=== PATIENT | female | born 1955 | race Two or more races ===

== ENCOUNTER 2022-08-04 00:59 | Emergency (ER) | payer MEDICAID ==
--- NOTE | 2022-08-04 01:52 | NUR ---
CALLED FOR TRIAGE, NO ANSWER
--- NOTE | 2022-08-04 02:13 | NUR ---
CALLED FOR TRIAGE, NO ANSWER
== END 2022-08-04 02:21 | disposition left against medical advice (07) ==
LOC: ER 01:02
DX: Z53.21 Procedure and treatment not carried out due to patient leaving prior to being seen by health care provider (principal)

== ENCOUNTER 2022-10-10 05:33 | Inpatient (IN) | payer MEDICAID ==
[~2022-10-10] VITALS: Ht 170.2 cm; Wt 152.9 kg
[2022-10-10] VITALS (36 sets, daily range): BP systolic 81–143; BP diastolic 51–118; TEMP 97.5–98.6
--- NOTE | 2022-10-10 05:41 | NUR ---
[id number] HOME C/O SOB X1 HR. SATTING 85% ON NRB LOCKSTITCH TOPSTITCHER. RR 35. CONNECTED PT TO POX AND MONITOR. SAFETY MEASURES IN PLACE.
[2022-10-10] MEDS ORDERED: LORAZEPAM INJ 2 MG/ML VIAL ONE (05:42)
--- NOTE | 2022-10-10 05:42 | NUR ---
20G IV STARTED ON L AC AND R AC
--- NOTE | 2022-10-10 05:43 | NUR ---
COVID ANTIGEN SWAB COLLECTED AND SENT TO LAB
--- NOTE | 2022-10-10 05:43 | NUR ---
BLOOD COLLECTED AND SENT TO LAB
--- NOTE | 2022-10-10 05:53 | NUR ---
BLOOD CULTURE SAMPLES SENT TO LAB
--- NOTE | 2022-10-10 05:55 | NUR ---
TRENCH SHOVEL OPERATOR AT PT'S BEDSIDE
[2022-10-10] MEDS ORDERED: LORAZEPAM INJ 2 MG/ML VIAL IM ONE (06:00)
[2022-10-10] MEDS ORDERED: VANCOMYCIN 1 GM in IV D5W 250 ML IV SCH (06:00)
[2022-10-10] MEDS ORDERED: ACETAMINOPHEN ES 500 MG TABLET PO ONE (06:00)
[2022-10-10] MEDS ORDERED: PIPERACILLIN /TAZOBACTAM 3.375 G in IV D5W 50 ML IV ONE (06:00)
[2022-10-10] MEDS ORDERED: LORAZEPAM INJ 2 MG/ML VIAL IV ONE (06:00)
--- NOTE | 2022-10-10 06:04 | NUR ---
16FR F/C INSERTED. URINE COLLECTED AND SENT TO LAB
[2022-10-10] MEDS ORDERED: PIPERACI/TAZO 3.375GM/D5W 50ML PB IV ONE (06:06)
[2022-10-10] MEDS ORDERED: ACETAMINOPHEN ES 500 MG TABLET ONE (06:07)
--- NOTE | 2022-10-10 06:10 | NUR ---
PT PLACED ON BIPAP SETTINGS: IPAP 15 EPAP 5 FIO2 60% RATE 16
[2022-10-10] MEDS ORDERED: VANCOMYCIN 1 GM /D5W 250 ML PB IV ONE (06:17)
[2022-10-10 06:24] LABS: BASOPHILS # (AUTO) 0.1 K/uL (0.0-0.2); BASOPHILS % (AUTO) 0.7 % (0.0-2.0); EOSINOPHILS % (AUTO) 0.2 % (0.0-6.0); HEMATOCRIT 48 % (33-45); HEMOGLOBIN 13.7 g/dL (11.5-14.8); LYMPHOCYTES # (AUTO) 1.6 K/uL (0.8-4.8); LYMPHOCYTES % (AUTO) 13.9 % (20.0-44.0); MEAN CORPUSCULAR HGB CONC 29 g/dl (31.0-36.0); MEAN CORPUSCULAR VOLUME 63 fL (82-100); MONOCYTES # (AUTO) 0.8 K/uL (0.1-1.30); MONOCYTES % (AUTO) 6.6 % (2.0-12.0); NEUTROPHILS # (AUTO) 9.1 K/uL (1.8-8.9); NEUTROPHILS % (AUTO) 78.6 % (43.0-81.0); PLATELET COUNT (AUTO) 189 K/uL (150-450); RED BLOOD CELL COUNT(AUTO) 7.61 MIL/uL (4.0-5.2); WHITE BLOOD COUNT (AUTO) 11.6 K/uL (4.3-11.0)
[2022-10-10] MEDS ORDERED: FUROSEMIDE 40 MG/4 ML VIAL IV ONE (06:30)
[2022-10-10] MEDS ORDERED: DILTIAZEM HCL IV 125 MG in IV NS 0.9% 100 ML IV PRN ×2 (06:30→14:00)
[2022-10-10] MEDS ORDERED: DILTIAZEM HCL 50 MG IV IV ONE (06:30)
[2022-10-10] MEDS ORDERED: FUROSEMIDE 40 MG/4 ML VIAL ONE (06:30)
[2022-10-10] MEDS ORDERED: DILTIAZEM HCL 50 MG IV ONE (06:32)
--- NOTE | 2022-10-10 06:47 | NUR ---
CARDIZEM DRIP STARTED 0645 @5MG/HR
[2022-10-10 06:48] LABS: CALCIUM, SERUM 9.5 mg/dL (8.5-10.1); CARBON DIOXIDE 28 mmol/L (21-32); CHLORIDE 99 mmol/L (98-107); GLUCOSE 190 mg/dL (74-106); POTASSIUM 4.2 mmol/L (3.5-5.1); SODIUM SERUM 138 mmol/L (136-145); UREA NITROGEN, BLOOD 17 mg/dL (7-18)
[2022-10-10 06:48] LABS: BILIRUBIN,URINE 1+ (NEGATIVE); COLOR,URINE DARK YELLOW (YELLOW); LEUKOCYTE ESTERASE ,URINE NEGATIVE (NEGATIVE); NITRITE, URINE NEGATIVE (NEGATIVE); PH,URINE 7.5 (5.0-8.0); PROTEIN,URINE 3+ mg/dl (NEGATIVE); UGLUCOSE TRACE mg/dL (NEGATIVE)
[2022-10-10 06:58] LABS: ALANINE AMINOTRANSFERASE 35 U/L (12-78); ALBUMIN 3.5 g/dL (3.4-5.0); ALKALINE PHOSPHATASE 113 U/L (46-116); ASPARTATE AMINOTRANSFERASE 33 U/L (15-37); BILIRUBIN,DIRECT 0.8 mg/dL (0.0-0.2); BILIRUBIN,TOTAL 3.2 mg/dL (0.2-1.0)
[2022-10-10] MEDS ORDERED: AMIODARONE 150 MG/3 ML VIAL IV ONE ×2 (06:58→07:00)
[2022-10-10 07:00] LABS: BACTERIA,URINE Rare /HPF (None Seen); RBC,URINE 0-2 /HPF (0-2); SQUAMOUS EPITHELIAL CELL,UR Few /HPF (None Seen); WBC,URINE 0-2 /HPF (0-3)
--- NOTE | 2022-10-10 07:11 | NUR ---
ICU RM: [id number]
--- NOTE | 2022-10-10 07:28 | NUR ---
PATIENT ON BIPAP WITH FIO2 60.
[2022-10-10] MEDS ORDERED: ZOLPIDEM TARTRATE 5 MG TABLET PO PRN (08:00)
[2022-10-10] MEDS ORDERED: ONDANSETRON HCL/PF 4 MG/2 ML VIAL IVP PRN (08:00)
[2022-10-10] MEDS ORDERED: ACETAMINOPHEN 325 MG TABLET PO PRN (08:00)
[2022-10-10] MEDS ORDERED: MAG HYDROX/AL HYDROX/SIMETH 30 ML UDC PO PRN (08:00)
[2022-10-10] MEDS ORDERED: Z GUARD REMEDY 4 OZ OINT TP PRN (08:00)
[2022-10-10] MEDS ORDERED: MAGNESIUM HYDROXIDE 30 ML UDC PO PRN (08:00)
--- NOTE | 2022-10-10 08:23 | NUR ---
CALLED TI ICU DEPARTMENT ,REPORT GIVEN TO ADITYA VALDIVIA At 0820AM
--- NOTE | 2022-10-10 08:54 | NUR ---
Souleymane treviño in ED - 10/10/22 at 0859 by STELLA INJ CARDIZAM INCREASED TO 10 MG /HR
--- NOTE | 2022-10-10 08:58 | NUR ---
INJ CARDIZEM INCREASED TO 15 MG /HR
--- NOTE | 2022-10-10 09:15 | NUR ---
PT TRANSPORTATED TO ICU WITH ACLS PROTOCOLS ACCOMPANIED BY RT
--- NOTE | 2022-10-10 09:30 | NUR ---
RN NOTES PT ADMITTED FROM ER FOR ACUTE RESPIRATORY FAILURE. ON BIPAP 16L WITH FIO2 OF 60%, RUNNING CARDIZEM DRIP AT MAX OF 15 MG/HR.
[2022-10-10 09:32] LABS: ABG BASE EXCESS 1.8 mmol/L; ABG OXYGEN SATURATION 96.4 % (92.0-98.5); ABG PCO2 55.7 mmHg (35.0-45.0); ABG PH 7.333 (7.350-7.450); AaDO2 187.6 mmHg; COHb 1.6 % (0.5-1.5); MetHb 0.5 % (0.0-1.5); O2Hb 94.4 % (94.0-97.0); SITE, ABG Right Radial
[2022-10-10] MEDS: PANTOPRAZOLE 40 MG VIAL IV SCH (10:01)
[2022-10-10] MEDS: ENOXAPARIN SODIUM 40 MG/0.4 ML DISP.SYRIN SQ SCH (10:02)
[2022-10-10] MEDS: FUROSEMIDE 40 MG/4 ML VIAL IV SCH ×2 (10:02→15:31)
--- NOTE | 2022-10-10 12:00 | NUR ---
RN NOTES FOR RESPIRATORY SETTING PT ON BIPAP AT 16L W/FIO2 AT 50. UNABLE TO DOCUMENT ON FLOWSHEET CORRECT FLOW SETTING.
[2022-10-10 13:02] LABS: ABG BASE EXCESS 3.3 mmol/L; ABG OXYGEN SATURATION 97.3 % (92.0-98.5); ABG PCO2 57.6 mmHg (35.0-45.0); ABG PH 7.341 (7.350-7.450); ABG PO2 99.5 mmHg (75.0-100.0); AaDO2 192.2 mmHg; COHb 1.4 % (0.5-1.5); MetHb 0.4 % (0.0-1.5); O2Hb 95.5 % (94.0-97.0); SITE, ABG Left Radial; VENT MODE, BG 25/10 rr16 50%
[2022-10-10] MEDS: ZOSYN IVPB 3.375 G in IV D5W 50ml IV SCH ×3 (13:42→23:52)
--- NOTE | 2022-10-10 15:51 | NUR ---
RN CLOSING NOTES PT IS COMFORTABLE. STILL ON BIPAP 16L AND FIO2 OF 50%. PT IS MORE ALERT THAN BEFORE. BARIATRIC BED ORDERED FOR PT; PENDING DELIVERY. PT ON CARDIZEM DRIP OF 15 MG/HR. REPORT GIVEN TO JANE VALDIVIA FOR CONTINUATION OF CARE.
--- NOTE | 2022-10-10 16:00 | NUR ---
RN NOTES PT RECEIVED FROM ADITYA VALDIVIA FOR CONTINUITY OF CARE
[2022-10-10] MEDS: VANCOMYCIN 1.25 GM in IV D5W 250 ML IV SCH (17:03)
--- NOTE | 2022-10-10 18:27 | NUR ---
RN NOTES PT REMAINS ON CARDIZEM AT 5MG/HR , HR A.FIB IN 70'S , EGAN DRAINING TO GRAVITY, PT TOLERATING BIPAP SETTING WELL, PT IS MORE AWAKE, WILL ENDORSE TO BUILDING INSPECTION ENGINEER NURSE FOR CONTINUITY OF CARE .
--- NOTE | 2022-10-10 19:20 | NUR ---
RN OPENING NOTES RECEIVED PATIENT ON BED, OPEN EYES WHEN CALLING HER NAME A/O X 1-2 WITH CONFUSION. ON BIPAP WITH SETTING 25/10, AC-16, FIO2-50% SATING AT 97%. RESPIRATORY EVEN AND UNLABORED NO SOB NOTED. AFIB ON MONITOR WITH HR- 86 BPM. AFEBRILE, NO S/S OF DISTRESS NOTED. PATIENT CURRENTLY NPO EXCEPT MEDS. WITH RODNEY PICC LINE, RIGHT AC # 20 PERIPHERAL LINE, PATENT INTACT, FLUSHED WITH NS, NO S/S OF INFILTRATION NOTED. RUNNING CARDIZEM DRIP @ 5MG/HR. ON EGAN CATHETER, PATENT, INTACT DRAINING WITH CLEAR YELLOW URINE OUTPUT. ALL SAFETY PRECAUTION PROVIDED. BED IN LOWEST POSITION LOCKED. CALL LIGHT WITH IN REACH.
[2022-10-10] MEDS: DILTIAZEM HCL IV 125 MG in IV NS 0.9% 100 ML IV PRN (20:40)
--- NOTE | 2022-10-10 22:20 | NUR ---
RN NOTES NOTIFIED DENIS ADKINS REGARDING PATIENT BP- 82/52, HR- 83 BPM, PATIENT ON CARDIZEM DRIP, STILL AFIB ON MONITOR WITH NEW ORDER BOLUS NS 250ML NOTED AND CARRIED OUT.
[2022-10-10] MEDS ORDERED: IV NS 0.9% 250 ML IV ONE (22:30)
[2022-10-11] VITALS (44 sets, daily range): BP systolic 86–156; BP diastolic 55–130; TEMP 97.9–98.9
[2022-10-11 04:54] LABS: CALCIUM, SERUM 8.7 mg/dL (8.5-10.1); CREATININE 1.1 mg/dL (0.6-1.3); MAGNESIUM 1.6 mg/dL (1.8-2.4); PHOSPHORUS 4.9 mg/dL (2.5-4.9); POTASSIUM 4.1 mmol/L (3.5-5.1)
[2022-10-11 05:02] LABS: BASOPHILS % (AUTO) 0.2 % (0.0-2.0); EOSINOPHILS % (AUTO) 0.1 % (0.0-6.0); HEMATOCRIT 39 % (33-45); HEMOGLOBIN 11.7 g/dL (11.5-14.8); LYMPHOCYTES # (AUTO) 0.5 K/uL (0.8-4.8); MEAN CORPUSCULAR HGB CONC 30 g/dl (31.0-36.0); MEAN CORPUSCULAR VOLUME 62 fL (82-100); MONOCYTES # (AUTO) 0.6 K/uL (0.1-1.30); MONOCYTES % (AUTO) 5.7 % (2.0-12.0); NEUTROPHILS # (AUTO) 9.2 K/uL (1.8-8.9); PLATELET COUNT (AUTO) 130 K/uL (150-450); RED BLOOD CELL COUNT(AUTO) 6.23 MIL/uL (4.0-5.2); WHITE BLOOD COUNT (AUTO) 10.3 K/uL (4.3-11.0)
[2022-10-11 05:31] LABS: ABG BASE EXCESS 6.4 mmol/L; ABG OXYGEN SATURATION 97.5 % (92.0-98.5); ABG PCO2 66.3 mmHg (35.0-45.0); ABG PH 7.334 (7.350-7.450); ABG PO2 105.6 mmHg (75.0-100.0); AaDO2 176.3 mmHg; MetHb 0.4 % (0.0-1.5); O2Hb 96.1 % (94.0-97.0); SITE, ABG Right Radial
[2022-10-11] MEDS: ZOSYN IVPB 3.375 G in IV D5W 50ml IV SCH ×2 (05:54→12:11)
[2022-10-11] MEDS: VANCOMYCIN 1.25 GM in IV D5W 250 ML IV SCH ×2 (06:34→17:48)
[2022-10-11] MEDS ORDERED: METO-357 PO (08:05)
[2022-10-11] MEDS ORDERED: APIX5TAB PO (08:05)
[2022-10-11] MEDS ORDERED: ATOR80TA PO (08:05)
[2022-10-11] MEDS: PANTOPRAZOLE 40 MG VIAL IV SCH (08:35)
[2022-10-11] MEDS: ENOXAPARIN SODIUM 40 MG/0.4 ML DISP.SYRIN SQ SCH (08:37)
--- NOTE | 2022-10-11 09:02 | NUR ---
RT NOTE: ALERT PATIENT TAKEN OFF BIPAP PER AND PLACED ON OXYGEN 3LPM VIA NASAL CANNULA. TOLERATING WELL.
[2022-10-11] MEDS: Magnesium 1GM/D5W 100ML PREMIX 100 ML IV SCH ×2 (09:17→10:26)
[2022-10-11 11:20] LABS: ABG BASE EXCESS 7.5 mmol/L; ABG OXYGEN SATURATION 94.1 % (92.0-98.5); ABG PCO2 63.1 mmHg (35.0-45.0); ABG PH 7.362 (7.350-7.450); ABG PO2 75.6 mmHg (75.0-100.0); AaDO2 78.7 mmHg; COHb 0.7 % (0.5-1.5); MetHb 0.4 % (0.0-1.5); O2Hb 93.1 % (94.0-97.0); SITE, ABG Right Radial; VENT MODE, BG NASAL CANNULA
[2022-10-11] MEDS ORDERED: FUROSEMIDE 40 MG/4 ML VIAL IV SCH ×2 (12:00→17:00)
[2022-10-11] MEDS: METOPROLOL TARTRATE 50 MG TABLET PO SCH ×2 (13:50→21:26)
--- NOTE | 2022-10-11 14:20 | NUR ---
RN NOTES RECEIVED ORDERS FROM DR. TEAGUE [facility] AND TO PLACE PATIENT ON MILD INSULIN SLIDING SCALE.
[2022-10-11] MEDS ORDERED: DEXTROSE 50%-WATER 50 ML DISP.SYRIN IV PRN (14:30)
[2022-10-11] MEDS: DILTIAZEM HCL IV 125 MG in IV NS 0.9% 100 ML IV PRN (14:38)
--- NOTE | 2022-10-11 15:30 | NUR ---
RN NOTES WEANED PATIENT OFF CARDIZEM DRIP PER DR. CONCEPCION'S REQUEST, HE HAS PLACED ON ORAL METOPROLOL.
[2022-10-11] MEDS ORDERED: APIXABAN 5 MG TABLET PO SCH ×2 (17:00)
[2022-10-11] MEDS: INSULIN REGULAR, HUMAN 100 UNIT/ML 3 ML VIAL SQ PRN ×2 (17:18→21:27)
[2022-10-11] MEDS: BLOOD SUGAR DIAGNOSTIC 1 EACH STRIP IN SCH ×2 (17:27→21:21)
--- NOTE | 2022-10-11 19:20 | NUR ---
RN OPENING NOTES RECEIVED PATIENT ON BED, AWAKE, A/O X 1-2 WITH CONFUSION. ON NC 3LPM OF SUPPLEMENTAL OXYGEN. RESPIRATIONS EVEN AND UNLABORED NO SOB NOTED. AFIB ON MONITOR. AFEBRILE, NO S/S OF DISTRESS NOTED. PATIENT WITH RODNEY PICC LINE, PATENT INTACT, FLUSHED WITH NS, NO S/S OF INFILTRATION NOTED. RIGHT AC # 20 PERIPHERAL LINE NOTED, PATIENT COMPLAINS ABOUT PAIN WHEN FLUSHING IS ATTEMPTED. ON EGAN CATHETER, PATENT, INTACT DRAINING WITH CLEAR YELLOW URINE OUTPUT. ALL SAFETY PRECAUTION PROVIDED. BED IN LOWEST POSITION LOCKED, SR UP x2. CALL LIGHT WITH IN REACH. WILL CONTINUE TO MONITOR
--- NOTE | 2022-10-11 19:23 | NUR ---
RN CLOSING NOTES PATIENT IS COMFORTABLE, NO COMPLAINT OF PAIN AT THIS TIME, ALL DUE MEDS GIVEN. PATIENT SATURATING 95% OR ABOVE WITH 6L NC. REPORT GIVEN TO PRINCESS VALDIVIA FOR CONTINUATION OF CARE.
--- NOTE | 2022-10-11 20:37 | NUR ---
RN NOTE RT PLACED PT ON RESCUE BIPAP WITH SETTING OF 25/10, RATE 16, FIO2 35% WITH CURRENT O2SAT OF 95%.
[2022-10-11] MEDS ORDERED: PIPERACILLIN /TAZOBACTAM 3.375 G in IV D5W 100 ML IV SCH (21:00)
[2022-10-12] VITALS: BP 146/109; TEMP 97.9
[2022-10-12 01:00] VITALS: BP 131/102
--- NOTE | 2022-10-12 01:00 | NUR ---
RN NOTE PATIENT REFUSED BIPAP, WAS PUT ON SUPPLEMENTAL OXYGEN AT 3 LPM VIA NC. WILL CONTINUE TO MONITOR
--- NOTE | 2022-10-12 01:00 | NUR ---
RT NOTE PT REFUSING BIPAP. EXPLAINED RISKS AND BENEFITS. SHEA ANGELES @ BEDSIDE. PT PLACED ON 3 LPM NASAL CANNULA. WILL MONITOR.
--- NOTE | 2022-10-12 01:55 | NUR ---
RN CLOSING NOTES PATIENT IS LEAVING AMA. FAMILY SUPPORTS THE DECISION. PATIENT REFUSED SUPPELEMTAL OXYGEN VIA NC, SATURATION 75-78% ON RA. THE RISKS OF LEAVING AMA WERE EXPLAINED TO THE PATIENT AND THE FAMILY. NURSING UKE OPERATOR AND TUBE TESTER HERNANDEZ AWARE. ALL AMA FORMS SIGNED, BELONGINGS GIVEN TO THE PATIENT.
--- NOTE | 2022-10-12 02:00 | NUR ---
SUPERVISOR PIPELINE AMA PT BECAME AGITATED AND PULLED OFF LEADS AND BIPAP; PRIMARY RN AT BEDSIDE AND REATTACHED PT TO MONITOR AND EDUCATED THE PT ON NEED TO LEAVE ALL MEDICAL EQUIPMENT IN PLACE. PT NOTED WITH DECREASED SATURATION AND TACHY. PT YELLING TO CALL [employer] AND THAT SHE KNOWS HER RIGHTS AND DOES NOT HAVE TO STAY. PT UPSET SHE HAS BEEN CALLING FAMILY AND THEY DO NOT ANSWER. BSWR INITIATED PT NOTED TO NEED OXYGEN AND IS NON COMPLIANT. ENCOURAGED PT TO BE COMPLIANT WITH CARE. CALL PLACED TO DAUGHTER LAURENT ON PTS BEHAVIOR AND NEED FOR RESTRAINTS; PER LAURENT PT HAS BEEN CONFUSED AND NOT ACTUALLY CALLING FAMILY BUT TRYING TO MAKE PHONE CALLS USING CALL LIGHT. ENCOURAGED PT TO STAY IN HOSPITAL HER VITALS ARE UNSTABLE. PT UNABLE TO ACCESS HER PHONE SHE COULD NOT REMEMBER HER PIN. RIGHT HAND FREED FROM RESTRAINT PT NOTED TO BE CALM. ABLE TO UNLOCK PHONE AND TALKING TO DAUGHTER. [place] AND ADDITIONAL FAMILY MEMBERS ARRIVED TO TAKE PT HOME. CONVERSATION HAD WITH THAT EVEN THOUGH IT IS HER RIGHT TO LEAVE AMA IT IS ENCOURAGED FOR HER TO STAY IN HOSPITAL DUE TO UNSTABLE VITAL SIGNS AND PT UNABLE TO AMBULATE ON HER OWN. PER FAMILY IT IS PTS RIGHT TO LEAVE AND THEY WILL TAKE HER IF IT'S WHAT SHE WANTS. THEY HAVE SIGNED HER OUT AMA FROM THE LAST 4 HOSPITALS AND NO ONE STOPPED THEM BEFORE. IN ADDITION PER PTS FATHER HERE SO SHE DOES NOT WANT TO BE HERE. INITIALLY PT WAS ACTING ERRATIC BUT ONCE FAMILY WAS HERE SHE WAS ALERT AND ORIENTED x4. Makayla HERNANDEZ MANAGER DENTAL NOTIFIED OF PT WANTING TO LEAVE AMA; MANAGER DENTAL ENCOURAGED PT TO STAY HOWEVER FAMILY CONTINUED SAYING SHE KNOWS HER RIGHTS. NURSING TERRITORY BUSINESS MANAGER MADE AWARE PT LEAVING AMA.
[2022-10-12] MEDS ORDERED: PANTOPRAZOLE 40 MG TABLET.DR PO SCH (09:00)
== END 2022-10-12 02:00 | disposition left against medical advice (07) | DRG 720 ==
LOC: ER 05:34 → ICU 08:56
PROVIDERS: ADMIT Student in an Organized Health Care Education/Training Program; ATTEND Student in an Organized Health Care Education/Training Program
PROC: 5A09457 Assistance with Respiratory Ventilation, 24-96 Consecutive Hours, Continuous Positive Airway Pressure (ICD-10-PCS; principal; 2022-10-10)
PROC: 02HV33Z Insertion of Infusion Device into Superior Vena Cava, Percutaneous Approach (ICD-10-PCS; 2022-10-10)
DX: A41.9 Sepsis, unspecified organism (principal); G93.41 Metabolic encephalopathy; I50.33 Acute on chronic diastolic (congestive) heart failure; J96.01 Acute respiratory failure with hypoxia; J96.02 Acute respiratory failure with hypercapnia; R65.20 Severe sepsis without septic shock; I11.0 Hypertensive heart disease with heart failure; L03.311 Cellulitis of abdominal wall; I48.91 Unspecified atrial fibrillation; E11.9 Type 2 diabetes mellitus without complications; E66.01 Morbid (severe) obesity due to excess calories; Z68.43 Body mass index [BMI] 50.0-59.9, adult; Z53.29 Procedure and treatment not carried out because of patient's decision for other reasons
CPT/HCPCS: 36415; 36600; 71045-TC; 80048-TC; 80076-TC; 80202-TC; 81001; 82962-TC; 83605-TC; 83735-TC; 83880; 84100-TC; 84484-TC; 85025-TC; 85730-TC; 87040-TC; 87086-TC; 93307-TC; 94799-TC; A4223; C9113; C9803; G0378; J0282; J1650; J1815; J1940; J2060; J2543; J3370; J3475; J3490; J7030; J7050; J7060

== ENCOUNTER 2024-01-23 18:09 | Inpatient (IN) | payer MEDICAID ==
[~2024-01-23] VITALS: Ht 160 cm; Wt 144.2 kg
[~2024-01-23 18:09] MED LIST: APIX5TAB PO; ATOR80TA PO; METO-357 PO
[2024-01-23 18:33] LABS: BASOPHILS # (AUTO) 0.1 K/uL (0.0-0.2); BASOPHILS % (AUTO) 0.7 % (0.0-2.0); EOSINOPHILS % (AUTO) 0.1 % (0.0-6.0); HEMATOCRIT 33 % (33-45); HEMOGLOBIN 9.7 g/dL (11.5-14.8); LYMPHOCYTES # (AUTO) 0.9 K/uL (0.8-4.8); LYMPHOCYTES % (AUTO) 6.5 % (20.0-44.0); MEAN CORPUSCULAR HEMOGLOBIN 17 PG (26.0-33.0); MEAN CORPUSCULAR HGB CONC 29 g/dl (31.0-36.0); MEAN CORPUSCULAR VOLUME 58 fL (82-100); MONOCYTES # (AUTO) 0.8 K/uL (0.1-1.30); NEUTROPHILS # (AUTO) 11.8 K/uL (1.8-8.9); NEUTROPHILS % (AUTO) 86.7 % (43.0-81.0); PLATELET COUNT (AUTO) 225 K/uL (150-450); RED CELL DISTRIBUTION WIDTH 19.8 % (11.5-15.0); WHITE BLOOD COUNT (AUTO) 13.6 K/uL (4.3-11.0)
[2024-01-23] MEDS: IV NS 0.9% 1,000 ML BAG IV ONE (18:38)
[2024-01-23 18:52] LABS: LACTIC ACID 3.4 mmol/L (0.4-2.0)
[2024-01-23] MEDS ORDERED: MORPHINE SULFATE INJ 4 MG/ML DISP.SYRIN ONE (18:54)
[2024-01-23] MEDS: MORPHINE SULFATE INJ 2 MG/ML DISP.SYRIN IV ONE (18:55)
[2024-01-23 18:56] LABS: INR 1.25 (0.91-1.10); PARTIAL THROMBOPLASTIN TIME 27.3 SEC (24.3-34.3); PROTHROMBIN TIME 12.8 SECS (9.2-11.1)
[2024-01-23] MEDS: CEFEPIME 1 GM in IV D5W 50 ML IV ONE (19:00)
[2024-01-23] MEDS: VANCOMYCIN 1 GM in IV D5W 250 ML IV ONE (19:00)
[2024-01-23] MEDS ORDERED: VANCOMYCIN 1 GM /D5W 250 ML PB IV ONE (19:14)
[2024-01-23] MEDS ORDERED: CEFEPIME 1 GM VIAL ONE (19:14)
[2024-01-23] MEDS ORDERED: DILTIAZEM HCL 50 MG IV ONE (19:59)
[2024-01-23] MEDS: DILTIAZEM HCL 50 MG IV IV ONE (20:07)
[2024-01-23 20:17] LABS: APPEARANCE,URINE CLEAR (CLEAR); BILIRUBIN,URINE 1+ (NEGATIVE); BLOOD, URINE 3+ Ery/uL (NEGATIVE); COLOR,URINE YELLOW (YELLOW); KETONES,URINE TRACE mg/dL (NEGATIVE); LEUKOCYTE ESTERASE ,URINE 2+ (NEGATIVE); NITRITE, URINE NEGATIVE (NEGATIVE); PROTEIN,URINE 2+ mg/dl (NEGATIVE); UGLUCOSE NEGATIVE (NEGATIVE)
[2024-01-23 20:27] LABS: CALCIUM, SERUM 8.8 mg/dL (8.5-10.1); CARBON DIOXIDE 33 mmol/L (21-32); CHLORIDE 98 mmol/L (98-107); CREATININE 0.9 mg/dL (0.6-1.3); GLUCOSE 160 mg/dL (74-106); POTASSIUM 4.7 mmol/L (3.5-5.1); SODIUM SERUM 139 mmol/L (136-145); UREA NITROGEN, BLOOD 15 mg/dL (7-18)
[2024-01-23 20:28] LABS: ADD URINE CULTURE YES; BACTERIA,URINE 4+ /HPF (None Seen); RBC,URINE 21-50 /HPF (0-2)
[2024-01-23 20:29] LABS: MUCUS,URINE Moderate /LPF (None Seen)
[2024-01-23 21:27] LABS: ALANINE AMINOTRANSFERASE 10 U/L (12-78); ALBUMIN 2.7 g/dL (3.4-5.0); ALKALINE PHOSPHATASE 102 U/L (46-116); ASPARTATE AMINOTRANSFERASE 22 U/L (15-37); BILIRUBIN,DIRECT 1.1 mg/dL (0.0-0.2); BILIRUBIN,TOTAL 2.8 mg/dL (0.2-1.0); TOTAL PROTEIN, SERUM 7.7 g/dL (6.4-8.2)
[2024-01-24] VITALS: BP 120/60; TEMP 100.8; O2SAT 100
[2024-01-24] MEDS ORDERED: HYDROCODONE/APAP 5/325MG TABLET PO PRN (00:30)
[2024-01-24] MEDS ORDERED: HYDROCODONE/APAP 10/325MG TABLET PO PRN (00:30)
[2024-01-24] MEDS ORDERED: METOPROLOL TARTRATE INJ 5 MG/5 ML AMPUL IVP PRN (00:30)
[2024-01-24] MEDS ORDERED: ONDANSETRON HCL/PF 4 MG/2 ML VIAL IV PRN (00:30)
[2024-01-24] MEDS ORDERED: DEXTROSE 50%-WATER 50 ML DISP.SYRIN IV PRN (01:00)
[2024-01-24] MEDS: BLOOD SUGAR DIAGNOSTIC 1 EACH STRIP IN SCH (01:20)
[2024-01-24] MEDS: INSULIN REGULAR, HUMAN 100 UNIT/ML 3 ML VIAL SQ PRN (01:22)
[2024-01-24 04:00] VITALS: BP 113/87; TEMP 99; O2SAT 99
[2024-01-24 08:00] VITALS: BP 135/82; TEMP 98.4; O2SAT 98
[2024-01-24] MEDS: METOPROLOL SUCCINATE 50 MG TAB.SR.24H PO SCH ×2 (08:21→12:08)
[2024-01-24] MEDS: APIXABAN 5 MG TABLET PO SCH (08:21)
[2024-01-24] MEDS ORDERED: METOPROLOL SUCCINATE 50 MG TAB.SR.24H PO SCH (08:30)
[2024-01-24] MEDS: VANCOMYCIN 1 GM in IV D5W 250ml IV ONE (08:38)
[2024-01-24] MEDS: CEFEPIME 2 GM in IV D5W 100 ML IV SCH (08:38)
[2024-01-24] MEDS ORDERED: THERAHONEY GEL 1.5 OZ TUBE TP ONE (09:00)
[2024-01-24] MEDS: DIGOXIN INJ 0.5 MG/2 ML AMPUL IV ONE (09:09)
[2024-01-24] MEDS: FUROSEMIDE 40 MG/4 ML VIAL IV SCH ×2 (09:09→10:00)
[2024-01-24] MEDS: SILVER SULFADIAZINE 50 GM JAR TP SCH (09:10)
[2024-01-24] MEDS ORDERED: METO25TA4 PO (10:05)
[2024-01-24] MEDS: POTASSIUM CHLORIDE 20 MEQ TAB.PRT.SR PO SCH (10:51)
[2024-01-24 12:00] VITALS: BP 101/83; TEMP 99; O2SAT 97
[2024-01-24 16:00] VITALS: BP 114/74; TEMP 99.5; O2SAT 95
[2024-01-24] MEDS ORDERED: THERAHONEY GEL 1.5 OZ TUBE TP PRN (16:00)
[2024-01-24] MEDS: ACETAMINOPHEN 325 MG TABLET PO PRN (16:48)
[2024-01-24 20:00] VITALS: BP 90/63; TEMP 98.6; O2SAT 96
[2024-01-24] MEDS: VANCOMYCIN HCL 1.25 GM in IV D5W 250 ML IV SCH (20:34)
[2024-01-24] MEDS: ATORVASTATIN 40 MG TABLET PO SCH (22:34)
[2024-01-25] VITALS: BP 102/62; TEMP 98; O2SAT 97
[2024-01-25 04:00] VITALS: BP 100/65; TEMP 98; O2SAT 97
[2024-01-25 07:18] LABS: BASOPHILS # (AUTO) 0.1 K/uL (0.0-0.2); BASOPHILS % (AUTO) 0.8 % (0.0-2.0); EOSINOPHILS # (AUTO) 0.1 K/uL (0.0-0.7); EOSINOPHILS % (AUTO) 1.3 % (0.0-6.0); HEMATOCRIT 29 % (33-45); HEMOGLOBIN 8.5 g/dL (11.5-14.8); LYMPHOCYTES # (AUTO) 0.7 K/uL (0.8-4.8); LYMPHOCYTES % (AUTO) 8.6 % (20.0-44.0); MEAN CORPUSCULAR HEMOGLOBIN 17 PG (26.0-33.0); MEAN CORPUSCULAR HGB CONC 30 g/dl (31.0-36.0); MEAN CORPUSCULAR VOLUME 59 fL (82-100); MONOCYTES # (AUTO) 0.8 K/uL (0.1-1.30); MONOCYTES % (AUTO) 9.9 % (2.0-12.0); NEUTROPHILS # (AUTO) 6.5 K/uL (1.8-8.9); NEUTROPHILS % (AUTO) 79.4 % (43.0-81.0); PLATELET COUNT (AUTO) 177 K/uL (150-450); RED BLOOD CELL COUNT(AUTO) 4.95 MIL/uL (4.0-5.2); RED CELL DISTRIBUTION WIDTH 20.1 % (11.5-15.0); WHITE BLOOD COUNT (AUTO) 8.3 K/uL (4.3-11.0)
[2024-01-25 07:45] LABS: CALCIUM, SERUM 8.9 mg/dL (8.5-10.1); CREATININE 0.8 mg/dL (0.6-1.3); POTASSIUM 3.8 mmol/L (3.5-5.1)
[2024-01-25 07:53] LABS: LACTIC ACID 1.2 mmol/L (0.4-2.0)
[2024-01-25 08:00] VITALS: BP 100/74; TEMP 97.7; O2SAT 98
[2024-01-25 08:04] LABS: THYROID STIMULATING HORMONE 2.58 uIU/mL (0.358-3.74)
[2024-01-25] MEDS: THERAHONEY GEL 1.5 OZ TUBE TP ONE (08:08)
[2024-01-25] MEDS: LINAGLIPTIN 5 MG TABLET PO SCH (09:00)
[2024-01-25] MEDS: FERROUS SULFATE (325 MG) 325 MG/TAB TABLET PO SCH (09:00)
[2024-01-25] MEDS: FUROSEMIDE 100 MG/10 ML VIAL IV SCH (09:00)
[2024-01-25] MEDS: DIGOXIN 0.125 MG TABLET PO SCH (09:00)
[2024-01-25] MEDS: METOPROLOL SUCCINATE 50 MG TAB.SR.24H PO SCH ×2 (09:15→17:06)
[2024-01-25] MEDS: FUROSEMIDE 40 MG/4 ML VIAL IV SCH (09:15)
[2024-01-25] MEDS: POTASSIUM CHLORIDE 20 MEQ TAB.PRT.SR PO SCH ×2 (09:16→09:53)
[2024-01-25 12:00] VITALS: BP 114/74; TEMP 98.2; O2SAT 95
[2024-01-25 16:00] VITALS: BP 112/74; TEMP 98; O2SAT 98
[2024-01-25 20:00] VITALS: BP 106/95; TEMP 97.9; O2SAT 99
[2024-01-25] MEDS: VANCOMYCIN 1 GM in IV D5W 250ml IV SCH (21:42)
[2024-01-26] VITALS: BP 112/92; TEMP 97.9; O2SAT 97
== END 2024-01-26 03:00 | disposition left against medical advice (07) | DRG 720 ==
LOC: ER 18:12 → ICU 21:16 → TELE1 22:44
PROVIDERS: ADMIT Internal Medicine; ATTEND Internal Medicine
PROC: 0JB80ZZ Excision of Abdomen Subcutaneous Tissue and Fascia, Open Approach (ICD-10-PCS; principal; 2024-01-25)
DX: A41.9 Sepsis, unspecified organism (principal); I50.43 Acute on chronic combined systolic (congestive) and diastolic (congestive) heart failure; E87.20 Acidosis, unspecified; I48.20 Chronic atrial fibrillation, unspecified; E88.09 Other disorders of plasma-protein metabolism, not elsewhere classified; J90 Pleural effusion, not elsewhere classified; E11.9 Type 2 diabetes mellitus without complications; D50.9 Iron deficiency anemia, unspecified; I11.0 Hypertensive heart disease with heart failure; L03.311 Cellulitis of abdominal wall; N39.0 Urinary tract infection, site not specified; E78.5 Hyperlipidemia, unspecified; Z79.01 Long term (current) use of anticoagulants; Z79.899 Other long term (current) drug therapy; G47.30 Sleep apnea, unspecified; I87.2 Venous insufficiency (chronic) (peripheral); I89.0 Lymphedema, not elsewhere classified; L03.115 Cellulitis of right lower limb; L03.116 Cellulitis of left lower limb; Z53.29 Procedure and treatment not carried out because of patient's decision for other reasons; E66.9 Obesity, unspecified; Z68.43 Body mass index [BMI] 50.0-59.9, adult; J98.11 Atelectasis
CPT/HCPCS: 36415; 71045-TC; 80048-TC; 80076-TC; 80202-TC; 81001; 82962-TC; 83540-TC; 83605-TC; 84443-TC; 84484-TC; 85025-TC; 85730-TC; 87040-TC; 87081-TC; 87086-TC; 87186-TC; 93307-TC; 94799-TC; 97110-TC; 97530-TC; A4223; A6253; A6403; G0378; J0692; J1160; J1815; J1940; J2270; J3370; J3490; J7040; J7050; J7060

== ENCOUNTER 2024-04-25 10:53 | Inpatient (IN) | payer MEDICAID ==
[~2024-04-25] VITALS: Ht 162.6 cm; Wt 145.1 kg
[~2024-04-25 10:53] MED LIST changes: -APIX5TAB PO; -ATOR80TA PO; -METO-357 PO; +METO25TA4 PO
[2024-04-25] MEDS ORDERED: FUROSEMIDE 40 MG/4 ML VIAL ONE (11:20)
[2024-04-25] MEDS ORDERED: FURO-144 PO (11:26)
[2024-04-25] MEDS: FUROSEMIDE 40 MG/4 ML VIAL IV ONE (11:26)
[2024-04-25 11:34] LABS: BASOPHILS # (AUTO) 0.1 K/uL (0.0-0.2); BASOPHILS % (AUTO) 1.2 % (0.0-2.0); EOSINOPHILS # (AUTO) 0.1 K/uL (0.0-0.7); EOSINOPHILS % (AUTO) 1.2 % (0.0-6.0); HEMATOCRIT 35 % (33-45); HEMOGLOBIN 10.2 g/dL (11.5-14.8); LYMPHOCYTES # (AUTO) 0.8 K/uL (0.8-4.8); LYMPHOCYTES % (AUTO) 17.1 % (20.0-44.0); MEAN CORPUSCULAR HEMOGLOBIN 17 PG (26.0-33.0); MEAN CORPUSCULAR HGB CONC 29 g/dl (31.0-36.0); MEAN CORPUSCULAR VOLUME 58 fL (82-100); MONOCYTES # (AUTO) 0.7 K/uL (0.1-1.30); NEUTROPHILS # (AUTO) 3.2 K/uL (1.8-8.9); NEUTROPHILS % (AUTO) 66.5 % (43.0-81.0); PLATELET COUNT (AUTO) 186 K/uL (150-450); RED BLOOD CELL COUNT(AUTO) 6.05 MIL/uL (4.0-5.2); RED CELL DISTRIBUTION WIDTH 21.2 % (11.5-15.0); WHITE BLOOD COUNT (AUTO) 4.8 K/uL (4.3-11.0)
[2024-04-25 11:41] LABS: CARBON DIOXIDE 38 mmol/L (21-32); CHLORIDE 100 mmol/L (98-107); CREATININE 1.1 mg/dL (0.6-1.3); GLUCOSE 143 mg/dL (74-106); SODIUM SERUM 139 mmol/L (136-145); UREA NITROGEN, BLOOD 16 mg/dL (7-18)
[2024-04-25 11:54] LABS: NT-PRO BNP 1773 pg/mL (0-125)
[2024-04-25] MEDS ORDERED: Magnesium 1GM/D5W 100ML PREMIX 100 ML IV ONE (13:45)
[2024-04-25] MEDS ORDERED: DILTIAZEM HCL 25 MG IV ONE (13:46)
[2024-04-25] MEDS: Magnesium 1GM/D5W 100ML PREMIX 100 ML IV SCH (14:02)
[2024-04-25] MEDS: DILTIAZEM HCL 50 MG IV IV ONE (14:02)
[2024-04-25] MEDS ORDERED: DEXTROSE 50%-WATER 50 ML DISP.SYRIN IV PRN (15:30)
[2024-04-25] MEDS ORDERED: ACETAMINOPHEN 325 MG TABLET PO PRN (15:30)
[2024-04-25] MEDS: METOLAZONE 2.5 MG TABLET PO SCH (15:30)
[2024-04-25] MEDS ORDERED: HYDROCODONE/APAP 5/325MG TABLET PO PRN (15:30)
[2024-04-25] MEDS ORDERED: ONDANSETRON HCL/PF 4 MG/2 ML VIAL IV PRN (15:30)
[2024-04-25] MEDS ORDERED: ZOLPIDEM TARTRATE 5 MG TABLET PO PRN (15:30)
[2024-04-25] MEDS ORDERED: DIGOXIN INJ 0.5 MG/2 ML AMPUL ONE (15:57)
[2024-04-25] MEDS ORDERED: METOPROLOL SUCCINATE 25 MG TAB.SR.24H ONE (15:58)
[2024-04-25] MEDS: DIGOXIN INJ 0.5 MG/2 ML AMPUL IV ONE (16:06)
[2024-04-25] MEDS: METOPROLOL SUCCINATE 25 MG TAB.SR.24H PO SCH (16:07)
[2024-04-25] MEDS: BLOOD SUGAR DIAGNOSTIC 1 EACH STRIP VI SCH (17:30)
[2024-04-25 20:00] VITALS: BP 126/75; TEMP 97.7; O2SAT 97
[2024-04-25] MEDS: *INSULIN REGULAR(HUMULIN R)HUM 100 UNIT/ML VIAL SQ PRN (23:07)
[2024-04-25] MEDS: FUROSEMIDE 40 MG/4 ML VIAL IV SCH (23:12)
[2024-04-25] MEDS: APIXABAN 5 MG TABLET PO SCH (23:13)
[2024-04-26] VITALS: BP 103/74; TEMP 97.7; O2SAT 98
[2024-04-26 04:00] VITALS: BP 127/81; TEMP 97.7; O2SAT 97
[2024-04-26] MEDS: INSULIN REGULAR, HUMAN 100 UNIT/ML 3 ML VIAL SQ PRN (06:18)
[2024-04-26 06:40] LABS: CALCIUM, SERUM 8.6 mg/dL (8.5-10.1); CREATININE 0.9 mg/dL (0.6-1.3); POTASSIUM 3.2 mmol/L (3.5-5.1)
[2024-04-26 06:52] LABS: BASOPHILS % (AUTO) 0.6 % (0.0-2.0); EOSINOPHILS # (AUTO) 0.1 K/uL (0.0-0.7); EOSINOPHILS % (AUTO) 1.6 % (0.0-6.0); HEMATOCRIT 34 % (33-45); HEMOGLOBIN 9.7 g/dL (11.5-14.8); LYMPHOCYTES # (AUTO) 0.9 K/uL (0.8-4.8); LYMPHOCYTES % (AUTO) 15.1 % (20.0-44.0); MEAN CORPUSCULAR HEMOGLOBIN 16 PG (26.0-33.0); MEAN CORPUSCULAR HGB CONC 28 g/dl (31.0-36.0); MEAN CORPUSCULAR VOLUME 58 fL (82-100); MONOCYTES % (AUTO) 16.8 % (2.0-12.0); NEUTROPHILS # (AUTO) 4.1 K/uL (1.8-8.9); NEUTROPHILS % (AUTO) 65.9 % (43.0-81.0); PLATELET COUNT (AUTO) 168 K/uL (150-450); RED BLOOD CELL COUNT(AUTO) 5.92 MIL/uL (4.0-5.2); WHITE BLOOD COUNT (AUTO) 6.2 K/uL (4.3-11.0)
[2024-04-26 07:15] LABS: THYROID STIMULATING HORMONE 2.66 uIU/mL (0.358-3.74)
[2024-04-26 08:00] VITALS: BP 105/68; TEMP 97.5; O2SAT 96
[2024-04-26] MEDS: THERAHONEY GEL 1.5 OZ TUBE TP SCH (09:39)
[2024-04-26] MEDS: POTASSIUM CHLORIDE 20 MEQ TAB.PRT.SR PO ONE (09:42)
[2024-04-26 10:44] LABS: APPEARANCE,URINE CLEAR (CLEAR); BILIRUBIN,URINE NEGATIVE (NEGATIVE); BLOOD, URINE 2+ Ery/uL (NEGATIVE); COLOR,URINE YELLOW (YELLOW); KETONES,URINE NEGATIVE (NEGATIVE); LEUKOCYTE ESTERASE ,URINE 2+ (NEGATIVE); NITRITE, URINE NEGATIVE (NEGATIVE); PH,URINE 5.5 (5.0-8.0); PROTEIN,URINE NEGATIVE (NEGATIVE); UGLUCOSE NEGATIVE (NEGATIVE); UROBILINOGEN,URINE 0.2 EU/dL (0.2)
[2024-04-26 10:58] LABS: ADD URINE CULTURE YES; BACTERIA,URINE Moderate /HPF (None Seen); SQUAMOUS EPITHELIAL CELL,UR Few /HPF (None Seen)
[2024-04-26 12:00] VITALS: BP 98/50; TEMP 97.3; O2SAT 90
[2024-04-26 16:00] VITALS: BP 112/75; TEMP 97.5; O2SAT 90
[2024-04-26 20:00] VITALS: BP 101/59; TEMP 97.7; O2SAT 95
[2024-04-26] MEDS: DOXYCYCLINE HYCLATE (100 MG) 100 MG TABLET PO SCH (21:11)
[2024-04-27] VITALS: BP 96/58; TEMP 97.3; O2SAT 96
[2024-04-27 04:00] VITALS: BP 105/45; TEMP 97.5; O2SAT 96
[2024-04-27 08:00] VITALS: BP 128/78; TEMP 98.2; O2SAT 95
[2024-04-27 08:59] VITALS: BP 128/78
[2024-04-27] MEDS: POTASSIUM CHLORIDE 20 MEQ TAB.PRT.SR PO ONE (09:58)
[2024-04-27] MEDS: CEFAZOLIN 2 GM in IV D5W 100 ML IV SCH (10:00)
[2024-04-27] MEDS ORDERED: CEFAZOLIN 1 GM in IV D5W 50 ML IV SCH (13:00)
== END 2024-04-27 16:40 | disposition left against medical advice (07) | DRG 194 ==
LOC: ER 10:55 → TELE1 16:46
PROVIDERS: ADMIT Internal Medicine; ATTEND Internal Medicine
DX: I11.0 Hypertensive heart disease with heart failure (principal); E11.40 Type 2 diabetes mellitus with diabetic neuropathy, unspecified; L03.115 Cellulitis of right lower limb; Z68.43 Body mass index [BMI] 50.0-59.9, adult; L03.116 Cellulitis of left lower limb; I48.20 Chronic atrial fibrillation, unspecified; D64.9 Anemia, unspecified; L03.311 Cellulitis of abdominal wall; E11.9 Type 2 diabetes mellitus without complications; E66.01 Morbid (severe) obesity due to excess calories; Z20.822 Contact with and (suspected) exposure to COVID-19; Z79.899 Other long term (current) drug therapy; E78.5 Hyperlipidemia, unspecified; G47.30 Sleep apnea, unspecified; E66.9 Obesity, unspecified; I50.43 Acute on chronic combined systolic (congestive) and diastolic (congestive) heart failure; I87.2 Venous insufficiency (chronic) (peripheral); E87.6 Hypokalemia; I87.8 Other specified disorders of veins
CPT/HCPCS: 36415; 71045-TC; 80048-TC; 81001; 82962-TC; 83880; 84443-TC; 84484-TC; 85025-TC; 93307-TC; A4223; A6253; A6403; G0378; J0690; J1160; J1815; J1940; J3475; J3490; J7050; J7060

== ENCOUNTER 2024-07-20 03:30 | Emergency (ER) | payer MEDICAID ==
[~2024-07-20] VITALS: Ht 157.5 cm; Wt 122.0 kg
[2024-07-20] MEDS: IV NS 0.9% 500 ML BAG IV ONE (03:50)
[2024-07-20] MEDS ORDERED: DILTIAZEM HCL 50 MG IV ONE ×2 (04:01→04:03)
[2024-07-20 04:09] LABS: CALCIUM, SERUM 8.9 mg/dL (8.5-10.1); CARBON DIOXIDE 28 mmol/L (21-32); CHLORIDE 96 mmol/L (98-107); CREATININE 1.3 mg/dL (0.6-1.3); GLUCOSE 144 mg/dL (74-106); POTASSIUM 4.5 mmol/L (3.5-5.1); SODIUM SERUM 133 mmol/L (136-145); UREA NITROGEN, BLOOD 22 mg/dL (7-18)
[2024-07-20] MEDS: DILTIAZEM HCL 50 MG IV IV ONE (04:10)
[2024-07-20 04:12] LABS: INR 1.61 (0.91-1.10); PARTIAL THROMBOPLASTIN TIME 32.5 SEC (24.3-34.3); PROTHROMBIN TIME 16.5 SECS (9.2-11.1)
[2024-07-20] MEDS ORDERED: ACETAMINOPHEN ES 500 MG TABLET ONE (04:13)
[2024-07-20 04:15] LABS: ALANINE AMINOTRANSFERASE 7 U/L (12-78); ALBUMIN 2.4 g/dL (3.4-5.0); ALKALINE PHOSPHATASE 77 U/L (46-116); ASPARTATE AMINOTRANSFERASE 26 U/L (15-37); BILIRUBIN,DIRECT 1.4 mg/dL (0.0-0.2); BILIRUBIN,TOTAL 2.5 mg/dL (0.2-1.0); TOTAL PROTEIN, SERUM 7.2 g/dL (6.4-8.2)
[2024-07-20 04:16] LABS: HEMOGLOBIN 9.5 g/dL (11.5-14.8); NEUTROPHILS # (AUTO) 16.4 K/uL (1.8-8.9); RED CELL DISTRIBUTION WIDTH 17.7 % (11.5-15.0)
[2024-07-20] MEDS: ACETAMINOPHEN 325 MG TABLET PO ONE (04:18)
[2024-07-20 04:19] LABS: LACTIC ACID 4.5 mmol/L (0.4-2.0)
[2024-07-20] MEDS: DILTIAZEM HCL IV 125 MG in IV NS 0.9% 100 ML IV PRN (04:21)
[2024-07-20 04:33] LABS: BASOPHILS % (AUTO) 0.2 % (0.0-2.0); EOSINOPHILS % (AUTO) 0.1 % (0.0-6.0); HEMATOCRIT 31 % (33-45); LYMPHOCYTES # (AUTO) 0.8 K/uL (0.8-4.8); LYMPHOCYTES % (AUTO) 4.6 % (20.0-44.0); MEAN CORPUSCULAR HEMOGLOBIN 18 PG (26.0-33.0); MEAN CORPUSCULAR HGB CONC 31 g/dl (31.0-36.0); MEAN CORPUSCULAR VOLUME 59 fL (82-100); MONOCYTES # (AUTO) 0.7 K/uL (0.1-1.30); MONOCYTES % (AUTO) 4.1 % (2.0-12.0); PLATELET COUNT (AUTO) 284 K/uL (150-450); RED BLOOD CELL COUNT(AUTO) 5.26 MIL/uL (4.0-5.2)
[2024-07-20 04:47] LABS: APPEARANCE,URINE SLIGHTLY CLOUDY (CLEAR); BILIRUBIN,URINE 2+ (NEGATIVE); BLOOD, URINE 3+ Ery/uL (NEGATIVE); COLOR,URINE DARK YELLOW (YELLOW); KETONES,URINE NEGATIVE (NEGATIVE); LEUKOCYTE ESTERASE ,URINE 1+ (NEGATIVE); NITRITE, URINE POSITIVE (NEGATIVE); PROTEIN,URINE 3+ mg/dl (NEGATIVE); UGLUCOSE NEGATIVE (NEGATIVE)
[2024-07-20] MEDS ORDERED: FUROSEMIDE 20 MG/2 ML VIAL ONE (05:10)
[2024-07-20] MEDS ORDERED: CEFTRIAXONE 1GM BAG (ER ONLY) 50 ML IV ONE (05:10)
[2024-07-20] MEDS: CEFTRIAXONE 1GM BAG (ER ONLY) 1 GM/50 ML PIGGYBACK IV ONE (05:11)
[2024-07-20] MEDS ORDERED: AZITHROMYCIN 500 MG VIAL ONE (05:11)
[2024-07-20] MEDS: FUROSEMIDE 20 MG/2 ML VIAL IV ONE (05:12)
[2024-07-20 05:18] LABS: ADD URINE CULTURE YES; BACTERIA,URINE Many /HPF (None Seen); WBC,URINE 51-80 /HPF (0-3)
[2024-07-20 05:19] LABS: SQUAMOUS EPITHELIAL CELL,UR Moderate /HPF (None Seen)
[2024-07-20 05:20] LABS: FINE GRANULAR CASTS,URINE Moderate /LPF (None Seen)
[2024-07-20] MEDS: AZITHROMYCIN 500 MG in IV D5W 250 ML IV ONE (05:26)
[2024-07-20] MEDS ORDERED: METO-357 PO (07:47)
[2024-07-20] MEDS ORDERED: FURO40TA5 PO (07:47)
[2024-07-20] MEDS ORDERED: ASPI-1169 PO (07:47)
[2024-07-20] MEDS ORDERED: DIGOXIN INJ 0.5 MG/2 ML AMPUL IV ONE (11:42)
[2024-07-20] MEDS ORDERED: METOPROLOL SUCCINATE 50 MG TAB.SR.24H PO SCH (11:43)
[2024-07-20 13:20] VITALS: BP 112/62; TEMP 99.2; O2SAT 99
[2024-07-20] MEDS ORDERED: LEVOFLOXACIN (250MG) 250 MG TABLET ONE (13:49)
[2024-07-20] MEDS: LEVOFLOXACIN (250MG) 250 MG TABLET PO SCH (13:50)
== END 2024-07-20 14:55 | disposition left against medical advice (07) ==
LOC: ER 03:50 → TELE1 12:23 → UNDOADMIN 12:23 → ER 14:55 → UNDODISIN 15:08
DX: A41.9 Sepsis, unspecified organism (principal); R65.20 Severe sepsis without septic shock; I48.91 Unspecified atrial fibrillation; N39.0 Urinary tract infection, site not specified; I11.0 Hypertensive heart disease with heart failure; I50.89 Other heart failure; E11.9 Type 2 diabetes mellitus without complications; J18.9 Pneumonia, unspecified organism; R60.1 Generalized edema; E66.9 Obesity, unspecified; D50.9 Iron deficiency anemia, unspecified; Z68.42 Body mass index [BMI] 45.0-49.9, adult; Z20.822 Contact with and (suspected) exposure to COVID-19; Z99.81 Dependence on supplemental oxygen; Z79.899 Other long term (current) drug therapy
CPT/HCPCS: 99291; 96365; 96367; 96368; 96375; 93005; 87804 ×2; 71045; 96376; 84145; 85025; 80048; 87077 ×2; 87040 ×2; 87086; 83605 ×2; 80076; 81001; 36415; 84484; 85730; 83880; 87426; J3490 ×2; J1938; J7030; J7050; J0456; A4223; J0696; G0378; J7060

== ENCOUNTER 2024-08-01 19:51 | Inpatient (IN) | payer MEDICAID ==
[~2024-08-01] VITALS: Ht 160 cm; Wt 83.0 kg
[~2024-08-01 19:51] MED LIST changes: +ASPI-1169 PO; +FURO40TA5 PO; +METO-357 PO; -METO25TA4 PO
[2024-08-01 20:47] LABS: BASOPHILS % (AUTO) 0.5 % (0.0-2.0); EOSINOPHILS % (AUTO) 0.2 % (0.0-6.0); HEMATOCRIT 32 % (33-45); HEMOGLOBIN 9.8 g/dL (11.5-14.8); LYMPHOCYTES # (AUTO) 0.7 K/uL (0.8-4.8); MEAN CORPUSCULAR HEMOGLOBIN 18 PG (26.0-33.0); MEAN CORPUSCULAR HGB CONC 31 g/dl (31.0-36.0); MEAN CORPUSCULAR VOLUME 58 fL (82-100); MONOCYTES % (AUTO) 12.4 % (2.0-12.0); NEUTROPHILS # (AUTO) 6.3 K/uL (1.8-8.9); NEUTROPHILS % (AUTO) 77.9 % (43.0-81.0); PLATELET COUNT (AUTO) 273 K/uL (150-450); RED BLOOD CELL COUNT(AUTO) 5.51 MIL/uL (4.0-5.2); RED CELL DISTRIBUTION WIDTH 17.5 % (11.5-15.0); WHITE BLOOD COUNT (AUTO) 8.1 K/uL (4.3-11.0)
[2024-08-01 21:08] LABS: ALANINE AMINOTRANSFERASE < 6 U/L (12-78); ALBUMIN 2.3 g/dL (3.4-5.0); ALKALINE PHOSPHATASE 81 U/L (46-116); ASPARTATE AMINOTRANSFERASE 35 U/L (15-37); BILIRUBIN,DIRECT 0.9 mg/dL (0.0-0.2); BILIRUBIN,TOTAL 1.8 mg/dL (0.2-1.0); CALCIUM, SERUM 9.7 mg/dL (8.5-10.1); CHLORIDE 91 mmol/L (98-107); CREATININE 1.3 mg/dL (0.6-1.3); GLUCOSE 135 mg/dL (74-106); NT-PRO BNP 3830 pg/mL (0-125); POTASSIUM 3.3 mmol/L (3.5-5.1); SODIUM SERUM 137 mmol/L (136-145); TOTAL PROTEIN, SERUM 7.4 g/dL (6.4-8.2); UREA NITROGEN, BLOOD 22 mg/dL (7-18)
[2024-08-01] MEDS ORDERED: ACETAMINOPHEN 325 MG TABLET ONE (21:34)
[2024-08-01] MEDS: ACETAMINOPHEN 325 MG TABLET PO ONE (21:39)
[2024-08-01 21:43] LABS: CARBON DIOXIDE 49 mmol/L (21-32)
[2024-08-01 21:56] LABS: ABG BASE EXCESS 24.3 mmol/L (-2.0-3.0); ABG OXYGEN SATURATION 92.6 % (94.0-98.0); ABG PCO2 62.2 mmHg (32.0-45.0); ABG PH 7.525 (7.350-7.450); ABG PO2 66.3 mmHg (83.0-108.0); ABG TOTAL HEMOGLOBIN 9.7 G/dL (12.0-16.0); COHb 0.3 % (0.5-1.5); MetHb 0.4 % (0.0-1.5); SITE, ABG RIGHT RADIAL
[2024-08-01] MEDS ORDERED: FUROSEMIDE 20 MG/2 ML VIAL ONE (23:40)
[2024-08-01] MEDS ORDERED: CEFEPIME 1 GM VIAL ONE (23:40)
[2024-08-01] MEDS: FUROSEMIDE 20 MG/2 ML VIAL IV ONE (23:48)
[2024-08-01] MEDS: CEFEPIME 1 GM in IV D5W 50 ML IV ONE ×2 (23:48→23:49)
[2024-08-01] MEDS: VANCOMYCIN 1 GM in IV D5W 250 ML IV ONE (23:50)
[2024-08-02] VITALS (9 sets, daily range): BP systolic 103–134; BP diastolic 48–76; TEMP 97–98.1; O2SAT 94–99
[2024-08-02] MEDS ORDERED: VANCOMYCIN 1 GM /D5W 250 ML PB IV ONE (00:06)
[2024-08-02] MEDS: VANCOMYCIN 1 GM in IV D5W 250 ML IV ONE (00:15)
[2024-08-02] MEDS ORDERED: QUETIAPINE FUMARATE 25 MG TABLET PO PRN (06:30)
[2024-08-02] MEDS ORDERED: HYDROCODONE/APAP 5/325MG TABLET PO PRN (06:30)
[2024-08-02] MEDS ORDERED: HYDROCODONE/APAP 10/325MG TABLET PO PRN (06:30)
[2024-08-02] MEDS ORDERED: ONDANSETRON HCL/PF 4 MG/2 ML VIAL IV PRN (06:30)
[2024-08-02] MEDS ORDERED: IPRATROPIUM NEB FS 0.5 MG/2.5 ML AMPUL.NEB IH PRN (07:30)
[2024-08-02] MEDS ORDERED: ALBUTEROL FS 2.5 MG/0.5 ML VIAL.NEB NEB PRN (07:30)
[2024-08-02 08:24] LABS: BASOPHILS % (AUTO) 0.5 % (0.0-2.0); EOSINOPHILS # (AUTO) 0.1 K/uL (0.0-0.7); EOSINOPHILS % (AUTO) 1.4 % (0.0-6.0); HEMATOCRIT 28 % (33-45); HEMOGLOBIN 8.6 g/dL (11.5-14.8); LYMPHOCYTES # (AUTO) 1.4 K/uL (0.8-4.8); LYMPHOCYTES % (AUTO) 19.8 % (20.0-44.0); MEAN CORPUSCULAR HEMOGLOBIN 18 PG (26.0-33.0); MEAN CORPUSCULAR HGB CONC 31 g/dl (31.0-36.0); MEAN CORPUSCULAR VOLUME 58 fL (82-100); MONOCYTES # (AUTO) 0.8 K/uL (0.1-1.30); NEUTROPHILS # (AUTO) 4.5 K/uL (1.8-8.9); NEUTROPHILS % (AUTO) 66.3 % (43.0-81.0); PLATELET COUNT (AUTO) 259 K/uL (150-450); RED BLOOD CELL COUNT(AUTO) 4.85 MIL/uL (4.0-5.2); RED CELL DISTRIBUTION WIDTH 17.5 % (11.5-15.0); WHITE BLOOD COUNT (AUTO) 6.8 K/uL (4.3-11.0)
[2024-08-02 08:33] LABS: CALCIUM, SERUM 9.5 mg/dL (8.5-10.1); CREATININE 1.1 mg/dL (0.6-1.3)
[2024-08-02] MEDS: ASPIRIN 81 MG TAB.CHEW PO SCH (09:00)
[2024-08-02] MEDS: METOPROLOL SUCCINATE 50 MG TAB.SR.24H PO SCH (09:00)
[2024-08-02] MEDS: FUROSEMIDE 40 MG TABLET PO SCH (09:00)
[2024-08-02] MEDS: predniSONE 20 MG TABLET PO SCH (09:14)
[2024-08-02] MEDS ORDERED: CEFA2SYR IV (09:24)
[2024-08-02] MEDS ORDERED: ALBU2.5V13 NEB (09:24)
[2024-08-02] MEDS: ALBUTEROL FS 2.5 MG/0.5 ML VIAL.NEB NEB SCH (09:30)
[2024-08-02] MEDS: IPRATROPIUM NEB FS 0.5 MG/2.5 ML AMPUL.NEB IH SCH (09:30)
[2024-08-02 09:47] LABS: ABG BASE EXCESS 21.9 mmol/L (-2.0-3.0); ABG OXYGEN SATURATION 94.5 % (94.0-98.0); ABG PCO2 70.3 mmHg (32.0-45.0); ABG PH 7.459 (7.350-7.450); ABG PO2 80.1 mmHg (83.0-108.0); ABG TOTAL HEMOGLOBIN 9.2 G/dL (12.0-16.0); COHb 0.4 % (0.5-1.5); MetHb 0.2 % (0.0-1.5); O2Hb 93.9 % (94.0-97.0); SITE, ABG RIGHT RADIAL
[2024-08-02] MEDS: methylPREDNISolone SOD SUCC 40 MG/ML VIAL IV SCH (10:00)
[2024-08-02] MEDS: THERAHONEY GEL 1.5 OZ TUBE TP SCH (11:03)
[2024-08-02 11:55] LABS: POTASSIUM 2.9 mmol/L (3.5-5.1)
[2024-08-02] MEDS: CEFAZOLIN 2 GM in IV D5W 100 ML IV SCH (12:35)
[2024-08-02] MEDS ORDERED: CEFAZOLIN 1 GM VIAL IV SCH (13:00)
[2024-08-02] MEDS: APIXABAN 5 MG TABLET PO SCH (16:41)
[2024-08-03] VITALS (12 sets, daily range): BP systolic 99–141; BP diastolic 55–82; TEMP 97.9–98.4; O2SAT 92–99
[2024-08-03] MEDS: ACETAMINOPHEN 325 MG TABLET PO PRN (01:51)
[2024-08-03] MEDS: LINAGLIPTIN 5 MG TABLET PO SCH (09:23)
[2024-08-03 09:29] LABS: ABG BASE EXCESS 20.7 mmol/L (-2.0-3.0); ABG OXYGEN SATURATION 94.6 % (94.0-98.0); ABG PCO2 55.6 mmHg (32.0-45.0); ABG PH 7.533 (7.350-7.450); ABG TOTAL HEMOGLOBIN 8.9 G/dL (12.0-16.0); COHb 0.7 % (0.5-1.5); MetHb 0.4 % (0.0-1.5); O2Hb 93.6 % (94.0-97.0); SITE, ABG LEFT RADIAL
[2024-08-03] MEDS ORDERED: PRED5TAB48 PO (11:05)
[2024-08-03] MEDS ORDERED: APIX5TAB PO (11:08)
[2024-08-03] MEDS ORDERED: LINA5TAB PO (11:08)
[2024-08-03 15:23] LABS: CALCIUM, SERUM 8.9 mg/dL (8.5-10.1); CREATININE 0.9 mg/dL (0.6-1.3); POTASSIUM 3.2 mmol/L (3.5-5.1)
[2024-08-03] MEDS: IV NS 0.9% 500 ML BAG IV ONE (21:54)
== END 2024-08-03 22:58 | DRG 206 ==
LOC: ER 19:54 → TELE1 08-02 03:37 → MEDSG1 08-02 18:40
PROVIDERS: ADMIT Internal Medicine; ATTEND Internal Medicine
DX: T82.524A Displacement of infusion catheter, initial encounter (principal); I50.33 Acute on chronic diastolic (congestive) heart failure; J96.10 Chronic respiratory failure, unspecified whether with hypoxia or hypercapnia; L03.311 Cellulitis of abdominal wall; F03.90 Unspecified dementia, unspecified severity, without behavioral disturbance, psychotic disturbance, mood disturbance, and anxiety; Z68.43 Body mass index [BMI] 50.0-59.9, adult; E11.9 Type 2 diabetes mellitus without complications; I48.20 Chronic atrial fibrillation, unspecified; D50.9 Iron deficiency anemia, unspecified; I11.0 Hypertensive heart disease with heart failure; Z99.81 Dependence on supplemental oxygen; E66.01 Morbid (severe) obesity due to excess calories; I48.91 Unspecified atrial fibrillation; J44.9 Chronic obstructive pulmonary disease, unspecified; Z79.82 Long term (current) use of aspirin; Z79.899 Other long term (current) drug therapy; Z20.822 Contact with and (suspected) exposure to COVID-19; Y92.009 Unspecified place in unspecified non-institutional (private) residence as the place of occurrence of the external cause; Y71.2 Prosthetic and other implants, materials and accessory cardiovascular devices associated with adverse incidents; E78.5 Hyperlipidemia, unspecified; E87.6 Hypokalemia; Z86.19 Personal history of other infectious and parasitic diseases; G47.30 Sleep apnea, unspecified; I87.2 Venous insufficiency (chronic) (peripheral); I87.8 Other specified disorders of veins
CPT/HCPCS: 36415; 36600; 71045-TC; 80048-TC; 80076-TC; 82803-TC; 83540-TC; 83880; 84484-TC; 85025-TC; 87040-TC; 94799-TC; A4223; G0378; J0690; J0692; J1938; J2919; J3370; J7050; J7060